=== PATIENT | female | born 1970 | race Caucasian/White ===

== ENCOUNTER 2024-07-25 08:40 | Outpatient (AMB) | payer OTHER, SELFPAY ==
[2024-07-25 08:47] VITALS: BMI 24.0
--- NOTE | 2024-07-25 08:47 | MHC.OFFVIS ---
Vital Signs 07/25/24 08:47 Height 5 ft 4 in Weight 140 lb BMI 24.0 Intake Visit Reasons: [employer]-Left knee pain/twisted Intake Note: Mike is a 70 year old male who presents today as a new patient with complaints of bilateral knee pain. He was previously seen in 2020 for the right knee, complex medial meniscus tear. Patient reports that he has had swelling in the left knee ongoing for about 1 month now.He does not recall any injury. He did have an ultrasound done of the left leg to rule out DVT - US was negative. He reports that both of his knees are painful, the right knee he is wearing a brace due to feeling unstable with cracking and popping. And the left knee is feeling painful and swollen. He is taking Advil PRN but he tries to avoid this. Allergies No Known Allergies Allergy (Verified 07/25/24 08:49) HPI HPI [employer] OPERATOR-Left knee pain/twisted: Details: Mike is a 70 year old male who presents today as a new patient with complaints of bilateral knee pain. He was previously seen in 2020 for the right knee, complex medial meniscus tear. Patient reports that he has had swelling in the left knee ongoing for about 1 month now.He does not recall any injury. He did have an ultrasound done of the left leg to rule out DVT - US was negative. He reports that both of his knees are painful, the right knee he is wearing a brace due to feeling unstable with cracking and popping. And the left knee is feeling painful and swollen. He is taking Advil PRN but he tries to avoid this. [facility] Surgical History (Updated 07/25/24 @ 08:51 by Swati Mclean CMA) History of carpal tunnel release Social History (Updated 07/25/24 @ 08:51 by Swati Mclean CMA) Current occupational status: employed Current occupation: Bank Worker Physical Exam Vital Signs: BMI result Body Mass Index 24.0 Extrem Other: Left knee with full range of motion. Negative Tylor's. Ligamentously stable exam. Mild tenderness to palpation medial patellofemoral joint. Assessment & Plan Assessment & Plan (1) Bursitis of left knee: Code(s): M70.52 - Other bursitis of knee, left knee Category: Medical Plan: One-month history of left knee pain after a twisting injury. Meniscus appears stable and pain seems bursal versus contusion versus irritation medial TMJ. No intervention warranted at this time. May follow up as needed Coding Level of Care Code New Pt Level 3 (77683) Diagnoses Bursitis of left knee M70.52
== END 2024-07-25 10:06 | disposition home or self-care (01) ==
PROVIDERS: PCP Physician Assistant Medical; Visit Provider Orthopaedic Surgery
DX: M70.52 Other bursitis of knee, left knee (principal)
CPT/HCPCS: 99203

== ENCOUNTER → 2024-07-25 08:40 | Outpatient (BNVA) | payer OTHER, SELFPAY | PROVIDERS: PCP Physician Assistant Medical; Visit Provider Orthopaedic Surgery | DX: M70.52 Other bursitis of knee, left knee (principal) | CPT/HCPCS: 99202 ==